=== PATIENT | male | born 1965 | race Caucasian/White ===

== ENCOUNTER → 2017-05-11 | Outpatient (CLI) | payer BC ==
--- NOTE | 2017-05-11 09:44 | CT ---
EXAMINATION TYPE: CT brain w con DATE OF EXAM: 05/11/2017 COMPARISON: NONE HISTORY: Gait abnormality, headache CT DLP: 1121 mGycm Automated exposure control for dose reduction was used. CONTRAST: CT scan of the head is performed with IV Contrast, patient injected with 100 mL of Omnipaque 300. FINDINGS: There is no abnormal enhancing mass or midline shift identified. The ventricles and sulci are within normal limits in size. The globes are intact and the visualized sinuses are clear. IMPRESSION: Negative contrast enhanced head CT exam.
== END | disposition home or self-care (01) ==
LOC: RADCTMAIN 09:12
PROVIDERS: ATTEND Internal Medicine
DX: R26.9 Unspecified abnormalities of gait and mobility (principal)
CPT/HCPCS: 70460; Q9967

== ENCOUNTER → 2022-05-30 | Outpatient (CLI) | payer BC ==
--- NOTE | 2022-05-30 13:55 | XR ---
EXAMINATION TYPE: XR lumbosacral spine min 4V DATE OF EXAM: 05/30/2022 COMPARISON: NONE INDICATION: Increasing chronic low back pain. No recent injury. TECHNIQUE: 5 views of the lumbar spine. FINDINGS: Mild retrolisthesis of L2 over L3, L3 over L4, L4 over L5 and L5 over S1. No definite vertebral body collapse or acute displaced fracture. Degenerative changes of the lumbar spine with multilevel opposi ng endplate osteophytosis. Degenerated L5-S1 disc. Suspected bilateral L5-S1 facet osteoarthropathy. Arterial atherosclerotic ca lcifications. Fecal loading of the visualized portion of the colon. Grossly unremarkable sacroiliac j oints. IMPRESSION: Degenerative changes of the lumbar spine as described above. Further MRI assessment can be considered if clinically required.
== END | disposition home or self-care (01) ==
LOC: RADXRYALE 11:20
PROVIDERS: ATTEND Internal Medicine
DX: M47.816 Spondylosis without myelopathy or radiculopathy, lumbar region (principal); M51.37 Other intervertebral disc degeneration, lumbosacral region; M43.16 Spondylolisthesis, lumbar region
CPT/HCPCS: 72110

== ENCOUNTER → 2022-08-02 | Outpatient (CLI) | payer BC ==
--- NOTE | 2022-08-02 17:18 | MR ---
EXAMINATION TYPE: MR lumbar spine wo con DATE OF EXAM: 08/02/2022 COMPARISON: Radiograph 05/30/2022 HISTORY: 57-year-old male M54.50, Low back pain that radiates into left leg TECHNIQUE: Multiplanar, multisequence images of the lumbar spine were acquired without IV contrast. FINDINGS: Vertebral body heights are preserved. There is trace grade 1 retrolisthesis L1-L2. Remaining alignment is maintained. Mild to moderate degenerative disc disease with variable disc desiccation and bulging. Moderate disc space narrowing L5-S1 and mild at L4-L5. Posterior annular fissure also noted at L4-L5. Ligamentum flavum thickening and hypertrophic facet arthropathy especially mid to lower lumbar spine. Conus medullaris is normal. Scattered fatty Modic type II endplate change particularly anteriorly L1-L2 and to a greater extent a t L5-S1. At T12-L1, no canal or foraminal stenosis. L1-L2, facet arthropathy with trace grade 1 retrolisthesis. Bulging disc impressing on the ventral th ecal sac. Changes result in mild right neuroforaminal narrowing. No spinal canal stenosis. At L2-L3, disc bulge impressing on the ventral thecal sac. No significant spinal canal or foraminal s tenosis. At L3-L4, diffuse disc bulge with prominent dorsal epidural fat and some ligamentum flavum thickening . Bilateral facet arthropathy. Changes result in mild spinal canal stenosis with mild bilateral neuro foraminal stenosis. At L4-L5, diffuse disc bulge with posterior annular fissure. Ligamentum flavum thickening and facet a rthropathy. Changes result in mild spinal canal stenosis with mild right greater than left neural for aminal stenosis. Disc material may abut the traversing bilateral L5 nerve roots at this level. At L5-S1, facet arthropathy and disc space narrowing. Changes result in mild to moderate bilateral ne uroforaminal stenosis. No significant spinal canal stenosis. Fusiform aneurysm up to 3.8 cm of the infrarenal abdominal aorta. Hydronephrosis or large parapelvic cysts in the left kidney measuring up to 4.6 cm. Recommend further contrast enhanced CT evaluation. IMPRESSION: 1. Mild to moderate multilevel degenerative disc disease greatest in the lower lumbar spine. There is enhancing posterior annular fissure at L4-L5. 2. Facet arthropathy and some ligamentum flavum thickening mid to lower lumbar spine. Degenerative gr susannah 1 retrolisthesis L1-L2. 3. Overall mild spinal canal stenosis at L3-L4 and L4-L5. No large focal disc herniation or high-grad e canal compromise. 4. Disc material at L4-L5 may abut the bilateral traversing L5 nerve roots. 5. Variable [id number] bilateral neuroforaminal stenoses as outlined above, greatest at L5-S1. 6. Incidental: Either hydronephrosis versus large parapelvic cysts of the left kidney measuring up to 4.6 cm. Recommend further contrast-enhanced CT abdomen/pelvis evaluation. Fusiform infrarenal AAA at 3.8 cm. Appropriate surveillance recommended.
== END | disposition home or self-care (01) ==
LOC: RADMRIMAIN 12:46
PROVIDERS: ATTEND Nurse Practitioner Family
DX: M51.36 Other intervertebral disc degeneration, lumbar region (principal); M48.061 Spinal stenosis, lumbar region without neurogenic claudication; I71.40 Abdominal aortic aneurysm, without rupture, unspecified; M51.87 Other intervertebral disc disorders, lumbosacral region
CPT/HCPCS: 72148

== ENCOUNTER → 2022-08-26 | Outpatient (CLI) | payer BC ==
--- NOTE | 2022-08-26 16:51 | CT ---
EXAMINATION TYPE: CT abdomen pelvis w con DATE OF EXAM: 08/26/2022 COMPARISON: Comparison is made with the 08/02/2022 MRI lumbar spine. INDICATION: Cyst of kidney, found on prior imaging, not reporting any issues other than back pain. DLP: 1250 mGycm, Automated exposure control for dose reduction was used. CONTRAST: 100 mL of Isovue 300. Study performed with Oral Contrast TECHNIQUE: Axial images were obtained from above the diaphragm to the pubic rami in the axial plane a t 5 mm thick sections. Reconstructed images are reviewed on the computer in the coronal plane. FINDINGS: Limited CT sections are obtained the lung bases. Mild compressive atelectasis is within the dependen t portion of the lung bases.. CT ABDOMEN: Liver: There is mild fatty infiltration of liver. Spleen: Normal Pancreas: Normal Adrenal glands: The adrenal glands are normal. Gallbladder: Normal Kidneys: No masses are evident. No hydronephrosis is present. There is a 3.9 cm cyst on the anterio r upper pole left kidney. A peripelvic cyst is present in the left renal pelvis. These findings are p resent on the MRI exam. Delayed images were obtained through the kidneys, which remain unremarkable. Aorta: Vascular calcification is within the aorta. There is some fusiform prominence of the mid abdo ginny aorta measuring 3.7 cm AP dimension. This terminates at the bifurcation and begins below the le rubia the renal arteries. Inferior vena cava: Normal. CT PELVIS: Loops of bowel within the abdomen and pelvis are normal. There are loops of bowel which are incom pletely distended or lack oral contrast limiting their evaluation. Appendix: Normal as visualized. Urinary bladder: Normal. Genitourinary structures: There is some prominence of the prostate. Osseous structures: No suspicious lytic or sclerotic lesions. Degenerative disc changes are present L 5-S1. IMPRESSIONS: 1. Left Peripelvic cyst in the renal pelvis and superior renal cyst left kidney. 2 mild fatty infilt ration of the liver.
== END | disposition home or self-care (01) ==
LOC: RADCTMAIN 13:19
PROVIDERS: ATTEND Internal Medicine
DX: K76.0 Fatty (change of) liver, not elsewhere classified (principal); N28.1 Cyst of kidney, acquired
CPT/HCPCS: 74177; Q9967

== ENCOUNTER → 2022-09-15 | Outpatient (CLI) | payer BC ==
[2022-09-15 10:06] VITALS: BP 151/88; PULSE 89; RESP 18; TEMP 98.6
--- NOTE | 2022-09-15 14:23 | P.PAINPG ---
PQRS Measure Charge Sheet Comment: HISTORY OF PRESENT ILLNESS: 57 yr old male as a referral from Dr Stevenson presents today w severe and chronic LBP secondary to retrolisthesis, spinal stenosis and facet arthropathy without myelopathy for evaluation. Pt states pain level is at 9/10 in intensity, constant, localized in the mid to lower lumbar spine, sharp/ achy in character w shooting pain towards the BLEs w LLE numbness occasionally. Pain is provoked by lifting, weight bearing activity. Pain is alleviated by PT in Jul 2022, home exercises as tolerated, chiropractic treatments in the past, TENS unit use, meds (Celebrex, Flexeril, Tylenol ES), use of a lumbar support brace, laying supine and rest. PMH: OA, Aortic Regurgitation PSH: R Clavicle Repair w Hardware, Hernia Repair SH: Hx of tobacco use, Hx of ETOH use, No illicit drug use. and lives w spouse. FH: CAD All: NKDA Meds: See list REVIEW OF ORGAN SYSTEMS: CONSTITUTIONAL: No fevers or chills. No recent weight loss. NEUROLOGICAL: + numbness and tingling along the distal extremities. No seizure disorders or headaches. MUSCULOSKELETAL: + pain PSYCHIATRIC: Denies current depression or suicidal thoughts. Physical Examinations : Constitutional : Cooperative , not in acute distress . Neurologic : Cranial nerve II to XII intact. No focal neurological deficits. Psychiatric : alert & oriented x 3. Matching mood & appropriate affect. Judgment & insight intact. Musculoskeletal : Cervical Spine Motor strength in the deltoid and biceps: Normal right side. Normal Left side Motor strength biceps and the wrist extensors: Normal right side . Normal left side Motor strength in the triceps muscle: Normal right side. Normal left side Deep tendon reflexes: Normal at the biceps. Normal at Brachioradialis. Normal at triceps Vertebral body tenderness to deep palpation over Cervical facet loading test: positive bilaterally Spurling test: positive bilaterally Neck distraction test: positive bilaterally Elza sign: positive bilaterally Lumbar spine Motor strength lower extremities ,thigh and legs 5/5 Right side , 5/5 Left side Deep tendon reflexes : Normal Knee Jerk. Normal Ankle Jerk Vertebral body tenderness over L5 Lumbar facet Loading Test: positive Right / positive Left Range of motion of the lumbar spine Flexion 30 degrees, extension 10 degrees Straight Leg Raise test: Left/ Right positive at degree Brenda test: positive right / positive left. Severe tenderness over the Sacroiliac joint on the Right / Left sides Gaenslen test: positive bilaterally Seated flexion test: positive bilaterally. Sacral spine : Severe tenderness over the Sacroiliac joint: right side / left side Range of motion: Flexion of the lumbar spine <60 degrees Range of motion: Extension of the lumb ar spine <20 degrees Gaenslen's Test positive Igor's Test positive Brenda test: positive right side / left side Thigh Thrust Test Sacral Thrust Test Imaging: MRI without contrast of the lumbar spine from 08/02/22 reviewed Assessment/ Plan : Lumbar retrolisthesis, lumbar spinal stenosis Recommendation of CARLOS L5-S1. May need a series of injections, up to 3 within a 6 mo period,for optimal pain relief. Risks, benefits of procedure discussed and patient verbalized understanding. Admits aspirin or anti- coagulant use or medical history of diabetes. Protocol for discontinuation/ continuation of medications roberth procedure discussed. All questions answered. I have spent greater than 30 minutes on patient care today. Dr Argueta was available by phone for the evaluation of this patient. The time was used to review the medical records including relevant urine studies and Prescription history (MAPs), review of the available imaging, evaluation and examination of the patient, coordination of care with the medical staff and if applicable referring physicians, as well as creation of the medical record - Pain Location Lower Back Non-Pharmacological Interventions: Chiropractic Treatment, Home Exercise, Inactivity, Physical Therapy, Position/Reposition, Stretching, TENS Unit Pharmacological Interventions: PRN Medication, Scheduled Medication Home Medications: Ambulatory Orders Aspirin 325 mg PO DAILY 09/15/22 Celecoxib [CeleBREX] 100 mg PO DAILY 09/15/22 Cyclobenzaprine [Flexeril] 10 mg PO HS 09/15/22 Controlled Substance Measures - Controlled Substance Measures Is patient prescribed a controlled substance at discharge?: No
== END ==
LOC: PNWHC3 09:34
PROVIDERS: ATTEND Specialist
DX: M43.16 Spondylolisthesis, lumbar region (principal); M48.061 Spinal stenosis, lumbar region without neurogenic claudication; Z79.01 Long term (current) use of anticoagulants; E11.9 Type 2 diabetes mellitus without complications
CPT/HCPCS: 99211

== ENCOUNTER 2022-10-18 05:49 | Day surgery (SDC) | payer BC ==
[2022-10-18 06:39] LABS: Glucose,Whole Blood 130 mg/dL (70-110)
[2022-10-18 06:40] VITALS: TEMP 97
[2022-10-18] MEDS ORDERED: LACTATED RINGERS 1,000 ML IV ONE (06:45)
[2022-10-18] MEDS ORDERED: MIDAZOLAM 2 MG/2 ML VIAL ONE (07:02)
[2022-10-18] MEDS ORDERED: methylPREDNISolone ACETATE 80 MG/ML 1 ML VIAL ONE (07:02)
[2022-10-18] MEDS ORDERED: fentaNYL (PF) 50 MCG/ML 2 ML AMP ONE (07:02)
[2022-10-18] MEDS ORDERED: IOPAMIDOL M200 10 ML VIAL ONE (07:02)
--- NOTE | 2022-10-18 07:12 | P.PCN ---
Date of Procedure: 10/18/22 Procedure(s) Performed: PREOPERATIVE DIAGNOSIS: 1- Lumbar Degenerative Disc Diseases 2-Lumbar spondylosis with Facet arthropathy without myelopathy. 3-lumbar spinal stenosis POSTOPERATIVE DIAGNOSIS: Same as preop diagnosis. PROCEDURE 1. Lumbar epidural steroid injection under fluoroscopic guidance at the L5-S1 level. (Fluoroscopy imaging was available in radiology department) 2. Lumbar epidurogram. ANESTHESIA: moderate sedation with intravenous Versed 2 mg ,and fentanyle 50 Mcg Sedation start time : 704 Sedation end time : 708 EBL: Minimal PROCEDURE INDICATION: The patient with low back pain and radiculitis symptoms unresponsive to conservative treatment. Fluoroscopy was used to optimize visualization of the needle placement and to maximize safety. PROCEDURE DESCRIPTION / TECHNIQUE: The patient was seen and identified in the preoperative area. Risks, benefits, complications including but not limited to infections ,bleeding ,allergic reaction to the medications ,nerve damage and not complete pain releife , and alternatives were discussed with the patient. The patient agreed to proceed with the procedure and signed the consent. IV was started, and vital signs were stable. Patient was taken to the OR and time out was completed. The patient was placed in the prone position on procedure table and a pillow was placed under the abdomen to reduce lumbar lordosis. The lumbosacral area was prepped and draped in the usual sterile fashion.ere closely monitored during the procedure. Conscious sedation was used during the procedure to decrease patients anxiety. Vital signs was monitered during the entire procedure. Using anterior-posterior fluoroscopy, the L5-S1 interlaminar space was identified and the skin over this site was marked and then infiltrated with 1% lidocaine subcutaneously. Subsequently, a 20-gauge Tuohy epidural needle was inserted and advanced toward the epidural space using the ``Loss of resistance technique and guided by AP and lateral fluoroscopy. The correct needle position in the epidural space was verified with the injection of 2 mL of the water soluble contrast dye Isovue 200 contrast and observing an excellent epidurogram with the epidural spread of the dye, after negative aspiration for blood and CSF and in the absence of paresthesias. Again after negative aspiration, a 6 ml mixture containing 80 mg of Depo-medrol ( Preservetive Free ), and 2 ml of preservative free Normal Saline, and 2 ml of preservative free lidocaine 1% solution was injected and a washout of epidurogram was seen. Needle was withdrawn intact, skin was cleansed, and bandages were applied. COMPLICATIONS: None DISPOSITION / PLANS: The patient was placed in a supine position and transferred to the recovery area in a stable condition for observation. There was no evid ence of lower extremity motor or sensory deficit after the procedure. Patient was discharged from the recovery room after meeting discharge criteria. Home discharge instructions were given to the patient by the staff. The patient was reexamined prior to discharge. The patient will schedule a follow up in the clinic in 2-4 weeks.
[2022-10-18] MEDS ORDERED: IV FLUID CONTINUATION 1,000 ML IV ONE (07:20)
[2022-10-18 07:31] VITALS: RESP 16
[2022-10-18 07:39] VITALS: BP 123/82; PULSE 71
--- NOTE | 2022-10-18 08:18 | FL ---
EXAMINATION TYPE: FL guided pain mgmt statistic DATE OF EXAM: 10/18/2022 CLINICAL HISTORY: Low back pain. TECHNIQUE: Fluoroscopy. COMPARISON: None. FINDINGS: Fluoroscopic guidance was provided during pain relief procedure performed by Dr. Madrid . A total of 3 seconds of fluoroscopic time was utilized during the procedure and 1 spot images are a cquired. Single image acquired shows needle localization at L5 level with contrast injection. IMPRESSION: As Above.
== END 2022-10-18 07:58 | disposition home or self-care (01) ==
LOC: ORPAIN 05:49
PROVIDERS: ATTEND Specialist
DX: M51.16 Intervertebral disc disorders with radiculopathy, lumbar region (principal); M47.26 Other spondylosis with radiculopathy, lumbar region; M48.061 Spinal stenosis, lumbar region without neurogenic claudication
CPT/HCPCS: 62323; J2250; J1040; J3010; Q9966

== ENCOUNTER 2023-01-12 06:32 | Day surgery (SDC) | payer BC ==
[2023-01-11 12:24] VITALS: BMI 25.7
[~2023-01-12 06:32] MED LIST: LACTATED RINGERS 1,000 ML IV SCH; LIDOCAINE 1% (10MG/ML) FOR IV START INTRADERMA PRN
[2023-01-12 07:08] VITALS: RESP 16; TEMP 97.6
[2023-01-12 07:09] LABS: Glucose,Whole Blood 168 mg/dL (70-110)
[2023-01-12] MEDS ORDERED: MIDAZOLAM 2 MG/2 ML VIAL ONE (07:22)
[2023-01-12] MEDS ORDERED: methylPREDNISolone ACETATE 80 MG/ML 1 ML VIAL ONE (07:22)
[2023-01-12] MEDS ORDERED: IOPAMIDOL M200 10 ML VIAL ONE (07:22)
[2023-01-12] MEDS ORDERED: fentaNYL (PF) 50 MCG/ML 2 ML AMP ONE (07:22)
--- NOTE | 2023-01-12 07:34 | P.PCN ---
Date of Procedure: 01/12/23 Procedure(s) Performed: PREOPERATIVE DIAGNOSIS: 1- Lumbar Degenerative Disc Diseases 2-Lumbar spondylosis with Facet arthropathy without myelopathy. 3-lumbar spinal stenosis POSTOPERATIVE DIAGNOSIS: Same as preop diagnosis. PROCEDURE 1. Lumbar epidural steroid injection under fluoroscopic guidance at the L4-5 level. (Fluoroscopy imaging was available in radiology department) 2. Lumbar epidurogram. ANESTHESIA: moderate sedation with intravenous Versed 2 mg ,and fentanyle 50 Mcg Sedation start time : 724 Sedation end time : 731 EBL: Minimal PROCEDURE INDICATION: The patient with low back pain and radiculitis symptoms unresponsive to conservative treatment. Fluoroscopy was used to optimize visualization of the needle placement and to maximize safety. PROCEDURE DESCRIPTION / TECHNIQUE: The patient was seen and identified in the preoperative area. Risks, benefits, complications including but not limited to infections ,bleeding ,allergic reaction to the medications ,nerve damage and not complete pain releife , and alternatives were discussed with the patient. The patient agreed to proceed with the procedure and signed the consent. IV was started, and vital signs were stable. Patient was taken to the OR and time out was completed. The patient was placed in the prone position on procedure table and a pillow was placed under the abdomen to reduce lumbar lordosis. The lumbosacral area was prepped and draped in the usual sterile fashion.ere closely monitored during the procedure. Conscious sedation was used during the procedure to decrease patients anxiety. Vital signs was monitered during the entire procedure. Using anterior-posterior fluoroscopy, the L4-5 interlaminar space was identified and the skin over this site was marked and then infiltrated with 1% lidocaine subcutaneously. Subsequently, a 20-gauge Tuohy epidural needle was inserted ( left paramedia ) ,and advanced toward the epidural space using the ``Loss of resistance technique and guided by AP and lateral fluoroscopy. The correct needle position in the epidural space was verified with the injection of 2 mL of the water soluble contrast dye Isovue 200 contrast and observing an excellent epidurogram with the epidural spread of the dye, after negative aspiration for blood and CSF and in the absence of paresthesias. Again after negative aspiration, a 6 ml mixture containing 80 mg of Depo-medrol ( Preservetive Free ), and 2 ml of preservative free Normal Saline, and 2 ml of preservative free lidocaine 1% solution was injected and a washout of epidurogram was seen. Needle was withdrawn intact, skin was cleansed, and bandages were applied. COMPLICATIONS: None DISPOSITION / PLANS: The patient was placed in a supine position and transferred to the recovery area in a stable condition for observation. There was no evidence of lower extremity motor or sensory deficit after the procedure. Patient was discharged from the recovery room after meeting discharge criteria. Home discharge instructions were given to the patient by the staff. The patient was reexamined prior to discharge. The patient will schedule a follow up in the clinic in 2-4 weeks.
[2023-01-12] MEDS ORDERED: IV FLUID CONTINUATION 1,000 ML IV ONE ×2 (07:39)
--- NOTE | 2023-01-12 07:47 | FL ---
Intraoperative/procedural fluoroscopic services were provided. Total fluoroscopy time is 1.9 seconds with a total of 1 submitted images to PACS. Please see the operative/procedural note for further deta ils. DAP: [phone]
[2023-01-12 07:56] VITALS: BP 134/84; PULSE 66
== END 2023-01-12 08:26 | disposition home or self-care (01) ==
LOC: ORPAIN 06:32
PROVIDERS: ATTEND Specialist
DX: M51.16 Intervertebral disc disorders with radiculopathy, lumbar region (principal); M47.26 Other spondylosis with radiculopathy, lumbar region; M48.061 Spinal stenosis, lumbar region without neurogenic claudication
CPT/HCPCS: 62323; J2250; J1040; J3010; Q9966

== ENCOUNTER → 2023-01-30 | Outpatient (CLI) | payer BC ==
[2023-01-30 09:11] VITALS: BP 130/85; PULSE 74; RESP 18; TEMP 97.9
--- NOTE | 2023-01-30 12:28 | P.PAINPG ---
PQRS Measure Charge Sheet Comment: A 57 yr old male with a history of severe and chronic LBP x 20 yrs secondary to lumbar DDD and spondylosis with facet arthropathy without myelopathy presents today for evaluation s/p CARLOS L4-L5. Pt states he experienced 50% pain relief x 2 wks s/p procedure. Pain level is provoked at 1/10 in intensity, constant, localized in the lumbar spine, achy in character w shooting towards the LLE. Pain is provoked by over activity. Pain is alleviated with PT w massage x 6 wks in Oct 2022, heat, ice, meds, laying supine, repositioning and rest. Interventional pain procedures completed include CARLOS L4-L5 x1, L5-S1 x1 Patient is currently on Celebrex, Tyl Patient denies any side effects of the medication(s), denies excessive drowsiness or sleepiness, denies suicidal ideation and reports that the current pain medication is helping to control the pain and improve activities of daily living. Patient denies any motor or sensory deficits. Patient denies any fever or night sweats, denies any change in the bowel movements or urination. Physical Examination: -Constitutional: Cooperative. Not in acute distress . - Neurologic: Cranial nerve II to XII intact. No focal neurological deficits. - Psychatric: Alert & oriented x 3. Matching mood & appropriate affect. Judgment and insight intact. - Musculoskeletal: Cervical spine: Muscle bulk/ tone/ strength in the bilateral upper extremities normal Vertebral body tenderness to palpation over Spurling test positive Distraction test positive Facet loading test positive TTP Thoracic spine Muscle bulk / tone/ strength in the bilateral paraspinal muscles normal Vertebral body tender to palpation over Facet loading test positive TTP Lumbar spine: Motor bulk/ tone/ strength lower extremities , thigh and legs : 5/5 Deep tendon reflexes : Normal Knee Jerk. Normal Ankle Jerk . Vertebral body tenderness to palpation over Lumbar Facet Loading Test positive Straight Leg Raise: positive at 30 degrees right side/ left side Gaenslen's Test positive Sacral spine : Severe tenderness over the Sacroiliac joint: right side / left side Range of motion: Flexion of the lumbar spine <60 degrees Range of motion: Extension of the lumbar spine <20 degrees Gaenslen's Test positive right side / left side Brenda test: positive right side / left side Thigh Thrust Test positive right side / left side Sacral Thrust Test positive right side / left side Assessment and plan: Chronic LBP secondary to lumbar DDD, spondylosis with facet arthropathy without myelopathy Pt had substantial pain relief w procedure. Will manage residual pain and may return to clinic as needed. All questions answered. I have spent less than 30 minutes on patient care today. Dr Argueta was available by phone for the evaluation of this patient. The time was used to review the medical records including relevant urine studies and Prescription history (MAPs), review of the available imaging, evaluation and examination of the patient, coordination of care with the medical staff and if applicable referring physicians, as well as creation of the medical record PQRS Narrative: Hx Alcohol Use (MH) No Home Medications: Ambulatory Orders Aspirin 325 mg PO DAILY 09/15/22 Celecoxib [CeleBREX] 100 mg PO DAILY 09/15/22 Cyclobenzaprine [Flexeril] 10 mg PO HS 09/15/22 Albuterol Sulfate [Albuterol Sulfate Hfa] 1 puff PO Q4-6H PRN 01/11/23 Controlled Substance Measures - Controlled Substance Measures Is patient prescribed a controlled substance at discharge?: No
== END ==
LOC: PNWHC3 08:28
PROVIDERS: ATTEND Specialist
DX: M51.36 Other intervertebral disc degeneration, lumbar region (principal); M47.816 Spondylosis without myelopathy or radiculopathy, lumbar region; G89.29 Other chronic pain; Z79.82 Long term (current) use of aspirin
CPT/HCPCS: 99211